=== PATIENT | female | born 1995 | race Caucasian/White ===

== ENCOUNTER 2016-12-04 19:01 | Emergency (ER) | payer OTHER ==
[~2016-12-04] VITALS: Ht 180.3 cm; Wt 79.4 kg
[~2016-12-04 19:01] MED LIST: DEPAKOTE250 MG PO
[2016-12-04] MEDS ORDERED: BACTRIM DS 8001 TA1 PO (19:36)
[2016-12-04] MEDS ORDERED: KEFLEX500 M1 PO (19:36)
[2016-12-04] MEDS ORDERED: NAPROSYN500 MG PO (19:36)
== END 2016-12-04 19:36 | disposition home or self-care (01) ==
LOC: ED 19:01
DX: L02.416 Cutaneous abscess of left lower limb (principal); R03.0 Elevated blood-pressure reading, without diagnosis of hypertension; F17.200 Nicotine dependence, unspecified, uncomplicated